=== PATIENT | female | born 1995 | race Two or more races ===

== ENCOUNTER 2019-04-25 06:07 | Day surgery (SDC) | payer MEDICAID ==
[2019-04-22 10:46] LABS: Urine WBC None Seen /hpf (0 - 5)
[2019-04-22 11:23] LABS: Basophils # (auto) 0 uL; Basophils % (auto) 0.6 % (0.0-2.0); Eosinophils # (auto) 0.3 uL; Eosinophils % (auto) 4.6 % (0.0-7.0); Hematocrit 39.8 % (36.0-46.0); Lymphocytes # (auto) 1.7 uL; Lymphocytes % (auto) 25.6 % (10.0-50.0); Mean Corpuscular Hemoglobin 27.7 pg (28.0-32.0); Mean Corpuscular Hgb Conc. 32.8 g/dL (32.0-36.0); Mean Corpuscular Volume 84.6 fL (80.0-100.0); Monocytes # (auto) 0.5 uL; Monocytes % (auto) 6.9 % (0.0-12.0); Neutrophils # (auto) 4.1 uL; Neutrophils % (auto) 62.3 % (37.0-80.0); Platelet Count (auto) 241 10^3/uL (140-450); Red Cell Distribution Width 13.8 % (11.8-14.3); White Blood Cell 6.5 10^3/uL (4.4-10.8)
[2019-04-22 11:28] LABS: Urine Bacteria FEW /hpf (None Seen); Urine Blood Negative /uL (Negative)
[2019-04-22 11:37] LABS: Albumin 3.6 g/dL (3.4-5.0); Potassium 3.8 mmol/L (3.5-5.1)
[2019-04-22 11:40] LABS: BUN/Creatinine Ratio 23.2; Bilirubin, Total 0.3 mg/dL (0.2-1.0); Total Protein 7.8 g/dL (6.4-8.2)
[2019-04-22 11:44] LABS: INR 0.93 (0.9-1.15); Partial Thromboplastin Time 29.2 sec (23.64-32.05)
[~2019-04-25] VITALS: Ht 157.5 cm; Wt 79.4 kg
[2019-04-25] MEDS ORDERED: MEPERIDINE HCL (25 MG/ML) 1ML VIAL ONE (07:40)
[2019-04-25] MEDS ORDERED: fentaNYL CITRATE 100 MCG/2 ML VL ONE (07:40)
[2019-04-25] MEDS ORDERED: MIDAZOLAM HCL 1MG/1ML-2 ML VIAL ONE (07:41)
[2019-04-25] MEDS ORDERED: ceFAZolin 1GM/50ML 50 ML IV ONE (07:41)
[2019-04-25] MEDS ORDERED: IOHEXOL 300 MG/ML 100ML BOTTLE IJ ONE (08:11)
[2019-04-25] MEDS ORDERED: DexAMETHasone SOD PHOS 10MG/1ML VIAL INJ ONE (08:15)
[2019-04-25 09:31] VITALS: BP 118/70
== END 2019-04-25 09:41 | disposition home or self-care (01) ==
LOC: SUR 06:07
PROVIDERS: ATTEND Urology
DX: N20.0 Calculus of kidney (principal); E66.9 Obesity, unspecified; Z68.32 Body mass index [BMI] 32.0-32.9, adult
CPT/HCPCS: 36415; 50590; 80053; 81001; 84702; 85025; 85610; 85730; J0690; J1100; J2175; J2250; J3010; Q9967